=== PATIENT | male | born 1960 | race Caucasian/White ===

== ENCOUNTER 2022-04-13 14:09 | Outpatient (CLI) | payer SELFPAY ==
--- NOTE | 2022-04-13 14:22 | CT_ITS ---
STUDY: CT ABDOMEN AND PELVIS WITH AND WITHOUT CONTRAST REASON FOR EXAM: Male, 61 years old. 3 week history of hematuria and persistent cough. RADIATION DOSAGE (If Supplied By Facility): CTDIvol = ( 26.15 ) mGy, DLP = ( 4477.98 ) mGycm TECHNIQUE: Transaxial images were obtained from the dome of the diaphragm to the symphysis pubis without oral contrast. IV 100mL Isovue-300 was administered. Sagittal and coronal images were reconstructed. Individualized dose optimization techniques were used for this CT. COMPARISON: None. FINDINGS: The visualized lung bases are unremarkable. The visualized portions of the heart are within normal limits. Normal liver. Normal gallbladder and extrahepatic biliary system. Normal spleen. Normal pancreas. Normal bilateral adrenal glands. Mild degree of bilateral hydronephrosis slightly more prominent right side. Normal left kidney. Normal visualized stomach. Normal small intestine. Normal colon. The appendix is visualized and appears normal. There is diffuse atherosclerotic calcification of the abdominal aorta, without a demonstrated aneurysm. Normal inferior vena cava. Normal retroperitoneum. Distended urinary bladder. There is a 5.9 cm x 3.6 cm papillary soft tissue mass in the bladder. On the right side of the urinary bladder, there is a 8 cm x 6.5 cm heterogeneous rounded appearing mass. This causes invasion along the right side of the bladder wall. Papillary masses are seen within it. This may represent a large right-sided bladder diverticulum versus heterogeneous right pelvic lymph node. There is enlargement of the prostate. The prostate measures 6.1 cm by 5.9 cm. There is a small umbilical hernia containing fat. There are diffuse degenerative changes of the visualized lumbar spine. CT/CT Abd/Pelvis W/WO Contrast IMPRESSION: Distended urinary bladder with a large hypervascular mass within. Soft tissue mass adjacent to the right side of the bladder suggestive of either adenopathy versus a large bladder diverticulum with a polypoid mass within it. Endoscopy is recommended. Prostatic enlargement. Electronically Signed: Hermelindo Nielson MD at 15:08 EDT ,
--- NOTE | 2022-04-13 14:50 | RAD_ITS ---
STUDY: X-RAY CHEST REASON FOR EXAM: Male, 61 years old. COUGH TECHNIQUE: PA and lateral views of the chest. COMPARISON: None. FINDINGS: There is hyperinflation of the lungs consistent with chronic obstructive lung disease (COPD). There is no demonstrated pleural abnormality. Normal size heart. Normal mediastinum and hugo. Normal visualized pulmonary arteries. Normal visualized aortic arch and descending thoracic aorta. There are degenerative changes of the visualized thoracic spine. Normal visualized ribs, clavicles, and shoulders. There is no demonstrated abnormality of the visualized soft tissue structures of the upper abdomen. RAD/Chest PA and Lateral IMPRESSION: Hyperinflation. The lungs are clear. Electronically Signed: Hermelindo Nielson MD at 15:27 EDT ,
== END 2022-04-13 23:59 | disposition home or self-care (01) ==
DX: R05.9 Cough, unspecified (principal); R31.0 Gross hematuria
CPT/HCPCS: 71046; 74178

== ENCOUNTER 2022-04-17 08:41 | Emergency (ER) | payer OTHER, SELFPAY ==
[2022-04-17 08:42] VITALS: BP 139/76; PULSE 85; RESP 16; TEMP 37; O2SAT 97; BMI 30.6
--- NOTE | 2022-04-17 09:05 | EDS_ITS ---
HPI History of Present Illness Chief Complaint: Complaint Informant: patient and spouse/S.O. Onset/Context/Timing Onset: Weeks (5 weeks) Narrative Narrative: Patient presents secondary to hematuria for the past 5 weeks. Patient states he initially was treated for UTI. The bleeding seemed to improve but then recurred. His primary care doctor sent him in last Saturday for a CT scan. He does not yet have results. Due to continued bleeding and feeling weak and anemic he came to the emergency room today. I am able to review the CT results. CT scan on April 13 revealed evidence of a distended bladder with a large hypervascular mass. PFSH PFS Medical History no medical history no medical history Allergy/AdvReac Type Severity Reaction Status Date / Time No Known Allergies Allergy Verified 04/17/22 08:42 Family History no significant family his Surgical History no surgical history Social History Smoking Status: Never smoker ROS ROS ED Constitutional Constitutional ED: Denies chills or fever(s) Eyes Eyes: Denies change in vision or discharge from eye(s) ENT ENT ED: Denies discharge from eye(s), rhinorrhea or sore throat Cardiovascular Cardiovascular: Denies chest pain or palpitations Respiratory/Chest Respiratory/Chest: Denies cough or dyspnea Gastrointestinal Gastrointestinal: Reports abdominal pain; Denies diarrhea, nausea or vomiting Genitourinary Genitourinary ED: Reports dysuria and hematuria Musculoskeletal Musculoskeletal: Reports back pain; Denies extremity pain Integumentary Denies Abrasions or rash Neurologic Neurologic: Reports weakness; Denies headache(s) Allergic/Immunologic Allergic/Immunologic ED: Denies lip swelling or urticaria EXAM Physical Exam Const Vital Signs: 04/17/22 08:42 04/17/22 12:00 04/17/22 13:40 Temperature 98.6 F Temperature Source Temporal Pulse Rate 85 75 75 Respiratory Rate 16 20 H 20 H Blood Pressure 139/76 H 139/81 H Blood Pressure Mean 97 Pulse Ox 97 98 Oxygen Delivery Method Room Air Positive well nourished and well developed General Appearance ED: well developed HEENT Reports normocephalic and head/scalp atraumatic Eyes PERRL and EOMs intact bilaterally Neck supple Chest Wall inspection of chest normal and palpation of chest normal Resp normal respiratory effort and clear to auscultation bilaterally Cardio regular rate and regular rhythm GI non-tender Auscultation: hypoactive bowel sounds Palpation: soft Extremity normal to inspection Neuro oriented x3 and no sensory deficits noted Sensorium / Orientation: alert Motor Exam: strength 5/5 throughout Psych mental status grossly normal Skin no rashes or lesions noted MDM MDM MDM Narrative Medical decision making narrative: Patient given IV fluids. Lab work obtained and urinalysis ordered. I did review the patient's CT scan from the first. Lab Data Labs: Laboratory Results - last 24 hr 04/17/22 04/17/22 04/17/22 09:05 09:25 09:25 WBC 15.9 H RBC 3.51 L Hgb 9.9 L Hct 31.0 L MCV 88.3 MCH 28.2 MCHC 31.9 L RDW Std Deviation 44.7 H RDW Coeff of Keenan 13.8 Plt Count 329 MPV 10.3 Immature Gran % (Auto) 0.600 Neut % (Auto) 74.8 H Lymph % (Auto) 8.6 L G[place] % (Auto) 6.9 Eos % (Auto) 8.3 H Baso % (Auto) 0.8 Absolute Neuts (auto) 11.9 H Absolute Lymphs (auto) 1.37 Nucleated RBC % 0 PT 14.0 INR 1.1 APTT 25.6 Sodium Potassium Chloride Carbon Dioxide Anion Gap BUN Creatinine Estim Creat Clear Calc Est GFR (MDRD) Af Amer Est GFR (MDRD) Non-Af BUN/Creatinine Ratio Glucose Calcium Urine Color Red Urine Clarity Turbid Urine pH 5.0 Ur Specific [place] 1.015 Urine Protein 500 H Urine Glucose (UA) Normal Urine Ketones 5 H Urine Occult Blood 250 H Urine Nitrite Negative Urine Bilirubin Negative Urine Urobilinogen Normal Ur Leukocyte Esterase 500 H Urine RBC 25-50 SEEN Urine WBC 25-50 SEEN Ur Squamous Epith Cells 0-5 SEEN Urine Bacteria 1+ Urine Mucus 0 SEEN Blood Type Antibody Screen 04/17/22 04/17/22 09:25 09:25 WBC RBC Hgb Hct MCV MCH MCHC RDW Std Deviation RDW Coeff of Keenan Plt Count MPV Immature Gran % (Auto) Neut % (Auto) Lymph % (Auto) [place] % (Auto) Eos % (Auto) Baso % (Auto) Absolute Neuts (auto) Absolute Lymphs (auto) Nucleated RBC % PT INR APTT Sodium 139 Potassium 3.6 Chloride 104 Carbon Dioxide 30.0 Anion Gap 5 BUN 13 Creatinine 1.14 Estim Creat Clear Calc 76.58 Est GFR (MDRD) Af Amer 84 Est GFR (MDRD) Non-Af 70 BUN/Creatinine Ratio 11.4 Glucose 123 H Calcium 8.8 Urine Color Urine Clarity Urine pH Ur Specific [place] Urine Protein Urine Glucose (UA) Urine Ketones Urine Occult Blood Urine Nitrite Urine Bilirubin Urine Urobilinogen Ur Leukocyte Esterase Urine RBC Urine WBC Ur Squamous Epith Cells Urine Bacteria Urine Mucus Blood Type A POSITIVE Antibody Screen NEGATIVE Treatment and Re-Evaluation Narrative: On repeat evaluation patient resting comfortably. Vital signs remained stable. CBC reveals a hemoglobin of 9.9 and hematocrit of 31. White count is elevated at 15.9. Coags are normal. Chemistry studies unremarkable. Urinalysis does reveal 25-50 red cells and 25-50 white cells. 1+ bacteria is noted. I spoke with the urology office here in [facility]. The urologist is on vacation for the next 2 weeks and not available for close follow-up. Patient would next prefer to go to [place] if at all possible. I spoke with the triage nurse for [facility]. CT images will be pushed to their facility and I will fax my note along with lab findings. Triage nurse called back stating that Dr. Douglas had reviewed the imaging and studies performed. He states that unless the pa tient is requiring continuous bladder irrigation or is in significant pain he can be followed up as an outpatient in the office this week. Patient is comfortable at this time and will call the office for follow-up. I did give the patient return instructions. Discharge Plan Triage Chief Complaint: Complaint ED Provider: Ophelia Shelton Dx/Rx/DC Orders Clinical Impression: Hematuria, Bladder mass Instructions: ED Hematuria Primary Care Provider: Vadim LIU Referrals: [facility] Doctor,Out of [NON-STAFF] - Activity Restrictions/Additional Instructions: As discussed, the CT scan of your abdomen that was performed on April 13 revealed evidence of a bladder mass. This requires further work-up by urology. I spoke with [facility] and they will be glad to see you in the office. Please call [phone] for an appointment as soon as possible. Disposition Disposition: Home, Self Care Discharge Date/Time: 04/17/22 13:40
[2022-04-17 09:35] LABS: Mucous, Urine 0 SEEN /hpf (<or=2+)
[2022-04-17 09:36] LABS: Color, Urine Red (Yellow); Glucose, Dipstick Normal (Normal); Ketone-Dipstick 5 mg/dl (Negative); Leukocyte Esterase-Dipstick 500 /ul (Negative); Nitrite-Dipstick Negative (Negative); Occult Blood-Urine 250 /ul (Negative); Protein-Dipstick 500 mg/dl (Negative); Specific Gravity, Urine 1.015 (1.002-1.030); Urine Bilirubin Dipstick Negative (Negative); Urine Clarity Turbid (Clear); Urine Urobilinogen Normal (Normal)
[2022-04-17 09:40] LABS: Absolute Lymphocyte Count 1.37 X10^3/uL (0.83-4.51); Absolute Neutrophil Count 11.9 X10^3/uL (2.0-7.7); Basophil# 0.12 X10^3/uL; Basophil% 0.8 % (0-1); Eosinophil# 1.32 X10^3/uL; Eosinophils% 8.3 % (0-5); Hemoglobin 9.9 g/dL (13.0-16.5); Lymphocyte # 1.37 X10^3/ul (0.83-4.51); Lymphocyte % 8.6 % (19-41); Mean Corp Hgb Conc 31.9 g/dL (32-36); Mean Corpuscular Hgb 28.2 pg (27.0-32.0); Mean Corpuscular Volume 88.3 fL (80-94); Mean Platelet Vol. 10.3 fl (6.2-12.0); Monocyte# 1.09 X10^3/uL; Monocyte% 6.9 % (0-10); NRBC Flagged by Analyzer 0 % (0-5); Neutrophil # 11.86 X10^3/uL (2.7-7.7); Neutrophil % 74.8 % (47-70); Platelet Count 329 K/mm3 (150-450); RBC Distribution Width CV 13.8 % (11.6-14.6); RBC Distribution Width SD 44.7 fl (35.1-43.9); Red Blood Count 3.51 M/mm3 (4.6-6.2); White Blood Count 15.9 K/mm3 (4.4-11.0)
[2022-04-17 09:42] LABS: Bacteria 1+ /hpf (None Seen); Red Blood Cells-Urine 25-50 SEEN /hpf (0-5); Squamous Epithelial Cells - UA 0-5 SEEN /hpf (0-5); White Blood Cells 25-50 SEEN /hpf (0-5)
[2022-04-17 09:49] LABS: International Normalized Ratio 1.1
[2022-04-17 09:50] LABS: Partial Thromboplast Time 25.6 Seconds (24.1-36.2)
[2022-04-17] MEDS: 0.9% Normal Saline 1,000 ML 150 ML IV (09:53)
[2022-04-17 09:54] LABS: Anion Gap 5 (5-15); BUN 13 mg/dL (7-18); BUN/Creat Ratio 11.4 RATIO (10-20); Calcium,Total 8.8 mg/dL (8.5-10.1); Chloride 104 mmol/L (98-107); Creatinine, Serum 1.14 mg/dL (0.70-1.30); EST Glomerular Filtration Rate 70 mL/min (>60); Est Glom Filt Rate - Afr Amer 84 mL/min (>60); Estimated Creatinine Clearance 76.58 ml/min; Glucose 123 mg/dL (74-106); Potassium 3.6 mmol/L (3.5-5.1); Sodium Level 139 mmol/L (136-145)
[2022-04-17 12:00] VITALS: PULSE 75; RESP 20
[2022-04-17 13:40] VITALS: BP 139/81; PULSE 75; RESP 20; O2SAT 98
== END 2022-04-17 13:40 | disposition home or self-care (01) ==
PROVIDERS: Emergency Provider Emergency Medicine; PCP Family Medicine; Visit Provider Emergency Medicine
DX: R31.9 Hematuria, unspecified (principal); N32.9 Bladder disorder, unspecified
CPT/HCPCS: 80048; 81001; 85025; 85610; 85730; 86850; 86900; 86901; 96360; 96361; 99284; J7030